=== PATIENT | female | born 1990 | race Caucasian/White ===

== ENCOUNTER 2017-03-24 21:11 | Emergency (ER) | payer MEDICAID ==
[~2017-03-24] VITALS: Ht 160 cm; Wt 59.4 kg
[2017-03-24 21:29] VITALS: BP 127/78
--- NOTE | 2017-03-24 23:29 | NUR ---
TO ER BED 4
--- NOTE | 2017-03-24 23:40 | NUR ---
PATIENT PRESENTS TO ED WITH C/O ABD PAIN X 4 DAYS . PT DENIES N/V/D; SKIN IS PINK/WARM/DRY; AAOX4 WITH EVEN AND STEADY GAIT; LUNGS CLEAR BL; HR EVEN AND REGULAR; PT DENIES ANY FEVER, CP, SOB, OR COUGH AT THIS TIME; PATIENT STATES PAIN OF 10/10 AT THIS TIME; VSS; PATIENT POSITIONED FOR COMFORT; HOB ELEVATED; BEDRAILS UP X2; BED DOWN. ER MD MADE AWARE OF PT STATUS.
--- NOTE | 2017-03-25 00:30 | NUR ---
PT TO XRAY VIA WC IN STABLE CONDITION
--- NOTE | 2017-03-25 00:40 | NUR ---
PT RETURNED FROM XRAY VIA WC IN STABLE CONDITION
[2017-03-25 02:25] VITALS: BP 102/62
== END 2017-03-25 00:25 | disposition home or self-care (01) ==
LOC: MED 21:11
DX: R10.84 Generalized abdominal pain (principal)
CPT/HCPCS: 81002; 81025; 99284